=== PATIENT | female | born 1965 | race Caucasian/White ===

== ENCOUNTER 2016-12-15 12:27 | Emergency (ER) | payer MEDICAID ==
[~2016-12-15 12:27] MED LIST: COZAAR100 MG PO; HYD25 PO; SOM350 PO; ULT50 PO
[2016-12-15 16:11] LABS: BASOPHIL % 0.2 % (0-2); PLATELET COUNT 263 x10^3mcL (130-400); RED CELL DISTRIBUTION WIDTH 12.8 % (11.5-14.5)
[2016-12-15 16:19] LABS: CALCIUM 9.2 mg/dL (8.5-10.1); CARBON DIOXIDE 34.5 mmol/L (21-32); CHLORIDE SERUM 101 mmol/L (98-107); CREATININE SERUM 0.7 mg/dL (0.6-1.0); GFR1 > 60 mL/min; GLUCOSE SERUM 108 mg/dL (74-106); SODIUM SERUM 142 mmol/L (136-145)
[2016-12-15 16:25] LABS: ALBUMIN 3.7 g/dL (3.4-5.0); ALKALINE PHOSPHATASE 194 U/L (46-116); ALT/SGPT 42 U/L (14-59); AST/SGOT 25 U/L (15-37); BILIRUBIN TOTAL 0.64 mg/dL (0.20-1.00); LIPASE 68 IU/L (73-393); TOTAL PROTEIN, SERUM 8.2 g/dL (6.4-8.2)
[2016-12-15 18:58] VITALS: BP 143/94
== END 2016-12-15 18:58 | disposition home or self-care (01) ==
LOC: ED 12:27
PROVIDERS: Emergency Medicine
DX: R10.13 Epigastric pain (principal); I10 Essential (primary) hypertension
CPT/HCPCS: J2405

== ENCOUNTER 2019-11-15 20:25 | Emergency (ER) | payer MEDICAID ==
[~2019-11-15] VITALS: Ht 165.1 cm; Wt 100.2 kg
[2019-11-15 20:32] VITALS: Ht 165.1 cm; Wt 100.2 kg
[2019-11-15 21:14] LABS: BASOPHIL % 0.6 % (0-2); PLATELET COUNT 259 x10^3mcL (130-400); RED CELL DISTRIBUTION WIDTH 13.4 % (11.5-14.5)
[2019-11-15 21:22] LABS: CALCIUM 9.1 mg/dL (8.5-10.1); CARBON DIOXIDE 29.8 mmol/L (21-32); CHLORIDE SERUM 105 mmol/L (98-107); CREATININE SERUM 0.8 mg/dL (0.6-1.0); GFR1 > 60 mL/min; GLUCOSE SERUM 124 mg/dL (74-106); SODIUM SERUM 143 mmol/L (136-145)
[2019-11-15 21:27] LABS: ALKALINE PHOSPHATASE 161 U/L (46-116); ALT/SGPT 28 U/L (14-59); AST/SGOT 19 U/L (15-37); BILIRUBIN TOTAL 0.4 mg/dL (0.20-1.00); TOTAL PROTEIN, SERUM 7.6 g/dL (6.4-8.2)
[2019-11-15 22:01] VITALS: BP 130/84
== END 2019-11-15 22:01 | disposition home or self-care (01) ==
LOC: ED 20:25
PROVIDERS: Emergency Medicine
DX: R07.89 Other chest pain (principal); R06.02 Shortness of breath; I10 Essential (primary) hypertension
CPT/HCPCS: J1885; Q0092

== ENCOUNTER 2020-03-10 17:13 | Emergency (ER) | payer MEDICAID ==
[~2020-03-10] VITALS: Ht 165.1 cm; Wt 100.2 kg
[2020-03-10 17:46] VITALS: Ht 165.1 cm; Wt 100.2 kg
[2020-03-10 21:10] LABS: BASOPHIL % 0.4 % (0-2); PLATELET COUNT 326 x10^3mcL (130-400); RED CELL DISTRIBUTION WIDTH 13.1 % (11.5-14.5)
[2020-03-10 21:22] LABS: CALCIUM 8.6 mg/dL (8.5-10.1); CARBON DIOXIDE 31.9 mmol/L (21-32); CHLORIDE SERUM 103 mmol/L (98-107); CREATININE SERUM 0.6 mg/dL (0.6-1.0); GFR1 > 60 mL/min; GLUCOSE SERUM 89 mg/dL (74-106); POTASSIUM SERUM 3.2 mmol/L (3.5-5.1); SODIUM SERUM 142 mmol/L (136-145)
[2020-03-10 21:26] LABS: ALBUMIN 4.1 g/dL (3.4-5.0); ALKALINE PHOSPHATASE 129 U/L (46-116); ALT/SGPT 25 U/L (14-59); AST/SGOT 20 U/L (15-37); BILIRUBIN TOTAL 0.5 mg/dL (0.20-1.00); TOTAL PROTEIN, SERUM 7.7 g/dL (6.4-8.2)
[2020-03-10 23:45] VITALS: BP 169/92
[2020-03-10 23:48] LABS: microscopic required? NO
[2020-03-11 00:27] LABS: UA SPECIFIC GRAVITY 1.015 (1.005-1.035); urine erythrocyte NEGATIVE (NEGATIVE)
== END 2020-03-10 23:45 | disposition home or self-care (01) ==
LOC: ED 17:13
PROVIDERS: Emergency Medicine
DX: N39.0 Urinary tract infection, site not specified (principal); I10 Essential (primary) hypertension
CPT/HCPCS: J1885; J2270; J2405